=== PATIENT | female | born 1960 | race Caucasian/White ===

== ENCOUNTER 2019-05-26 14:32 | Outpatient (CLI) | payer BC, SELFPAY ==
--- NOTE | ~2019-05-26 | MM_ITS ---
EXAMINATION: MM screening valeri BI w gemma HISTORY: Screening mammogram TECHNIQUE: Craniocaudal and mediolateral oblique 3-D tomosynthesis images were obtained and synthetic 2-D images were generated. CAD analysis was submitted and interpreted. COMPARISON: Comparison to multiple prior studies sequentially, with oldest reviewed study dated 11/2012. BREAST PARENCHYMAL COMPOSITION: There are scattered areas of fibroglandular density. FINDINGS: There is no evidence of suspicious mass, calcification, or architectural distortion to sugg est malignancy in either breast. There has been no suspicious interval change. IMPRESSION: 1. No mammographic evidence of malignancy. 2. Recommend routine screening mammography in one year. BI-RADS Category 1: Negative Reviewed, dictated and finalized at location A. [facility] [employer]
== END 2019-05-26 14:33 | disposition home or self-care (01) ==
LOC: ANHIMG 14:37
PROVIDERS: PCP Family Medicine; Visit Provider Family Medicine
DX: Z12.31 Encounter for screening mammogram for malignant neoplasm of breast (principal)
CPT/HCPCS: 77063; 77067

== ENCOUNTER 2019-05-28 13:08 | Outpatient (CLI) | payer BC, SELFPAY ==
[2019-05-28 14:06] LABS: Basophils Percent Auto 0.4 % (0.2-1.2); Eosinophils Absolute Auto 0.3 K/mm3 (0-0.3); Eosinophils Percent Auto 4.4 % (0-4.4); Hematocrit 41.2 % (37.0-47.0); Hemoglobin 13.8 g/dL (12.0-15.0); Immature Granulocyte Absolute 0.02 K/mm3 (0.00-0.031); Immature Granulocyte Percent A 0.3 % (0-0.5); Lymphocytes Absolute Auto 2.12 K/mm3 (0.9-3.2); Lymphocytes Percent Auto 30.3 % (18.3-44.2); Mean Corpuscular HGB Conc 33.5 g/dl (32-36); Mean Corpuscular Hemoglobin 30.8 pg (26-34); Monocytes Absolute Auto 0.5 K/mm3 (0.1-0.6); Monocytes Percent Auto 7.7 % (2.6-8.5); Neutrophils Percent Auto 56.9 % (45.5-73.1); Platelet Count Result 249 k/mm3 (150-375); Red Blood Count 4.48 M/mm3 (4.2-5.4); Red Cell Distribution Width 12.6 % (11.5-14.5)
[2019-05-28 14:19] LABS: Alanine Aminotransferase 36 U/L (4-35); Alkaline Phosphatase 55 U/L (38-126); Aspartate Amino Transferase 31 U/L (14-36); Bilirubin,Total 0.8 mg/dL (0.2-1.3); Blood Urea Nitrogen 16 mg/dL (7-17); Calcium 9.1 mg/dL (8.4-10.2); Carbon Dioxide 29 mmol/L (22-30); Chloride 105 mmol/L (98-107); Cholesterol 176 mg/dL (0-200); Estimated Glomerular Filt Rate > 60; Glucose 91 mg/dL (65-105); HDL Direct 48 mg/dL; Sodium 138 mmol/L (137-145); Triglycerides 152 mg/dL (<150)
[2019-05-28 14:30] LABS: LDL Cholesterol Direct 113 mg/dL
[2019-06-03 06:49] LABS: Vitamin D 1,25 (OH)2 Total 33 pg/mL (18-72); Vitamin D2 1,25 (OH)2 <8 pg/mL; Vitamin D3 1,25 (OH)2 33 pg/mL
== END 2019-05-28 13:09 | disposition home or self-care (01) ==
PROVIDERS: PCP Family Medicine; Visit Provider Family Medicine
DX: Z13.220 Encounter for screening for lipoid disorders (principal); Z00.01 Encounter for general adult medical examination with abnormal findings; Z13.21 Encounter for screening for nutritional disorder
CPT/HCPCS: 36415; 80053; 80061; 82652; 85025; 85027

== ENCOUNTER 2021-01-25 11:23 | Emergency (ER) | payer SELFPAY ==
[2021-01-25 11:31] VITALS: BP 132/93; PULSE 67; RESP 16; TEMP 36.4; O2SAT 95
--- NOTE | 2021-01-25 11:53 | ED.URI ---
HPI - URI/Sore Throat General Chief Complaint: Upper Respiratory Infection Stated Complaint: Cold Time Seen by Provider: 01/25/21 11:53 Source: patient Mode of arrival: ambulatory Limitations: no limitations History of Present Illness HPI Narrative: Yeny Young is a 60 yo female with no PMH with complaints of symptoms of sinusitis-cough and sinus congestion. States she gets sinusitis every year, and is concerned about moving to her chest, no SOB Related Data Allergies Allergy/AdvReac Type Severity Reaction Status Date / Time levofloxacin Allergy Mild shoulder Verified 05/17/19 14:35 tendon pain morphine Allergy Mild Nausea Verified 05/17/19 14:35 Review of Systems Review of Systems: CONSTITUTIONAL: Denies fever, chills, sweats. EYES: Denies visual changes, redness, discharge. ENT: Has rhinorrhea, has congestion, sore throat, otalgia. Has sinus tenderness CARDIOVASCULAR: Denies chest pain, palpitations, edema. RESPIRATORY: Denies dyspnea, wheezing, deep , productive cough GASTROINTESTINAL: Denies abdominal pain, nausea, vomiting, diarrhea. GENITOURINARY: Denies dysuria, hematuria, abnormal discharge SKIN: Denies rash or itching. NEUROLOGIC: Denies numbness, or focal weakness. PSYCHIATRIC: Denies anxiety or depression. PMFSH Past Medical History Medical History Anxiety Asthma Crushing injury of unspecified finger(s), sequela Hx of smoking Surgical History Surgical History History of hysterectomy History of surgical removal of ganglion cyst S/P cubital tunnel release Family History Family History Father Diabetes mellitus Acute myocardial infarction, Onset Age: 80 Hypertension Family history of cardiovascular disease Family history of type 2 diabetes mellitus Mother Hypertension Family history of cardiac disorder Family history of arthritis Sibling Family history of malignant neoplasm Family history of lung cancer Social History Social History Social History: Smoking status: Former smoker Second hand tobacco smoke exposure: No Smoking end date: 03/24/06 Alcohol intake: current Alcohol use details: socially Substance use: never Substance use type: does not use Gender identity (if verbalized by the patient): Female Comments At time of signature, I agree with nursing past medical, surgical, social and family history. There is no relevant family history pertinent to the presenting complaint. Patient has elevated blood pressure and will follow up with primary care physician Exam Narrative: GENERAL: This is a well-nourished, well-developed patient, in mild distress. HEAD: normocephalic, atraumatic. EYES: Sclera clear/white. Vision is grossly intact. EARS: External ears normal, auditory canals mild erythema and without drainage, TMs normal without perforation. Hearing grossly intact. NOSE: External nose normal with nasal discharge, nares without redness, has rhinorrhea. THROAT: Mucous membranes moist, posterior pharynx erythema NECK: Neck supple, non-tender CARDIOVASCULAR: Regular rate and rhythm without murmurs, gallops, or rubs. RESPIRATORY: Clear to auscultation. Breath sounds equal bilaterally. No wheezes, rales, or rhonchi. GASTROINTESTINAL: Abdomen soft, non-tender, SKIN: warm, intact with no suspicious lesions or rash, good texture and turgor. NEURO: awake, alert, and oriented to person, place and time. There were no obvious focal neurologic abnormalities. Steady gait EXTREMITIES: Normal range of motion. BACK: Nontender without deformity Course Course Emergency Course: Patient here with cough and sinus tenderness rhinorrhea states that she has sinusitis type illness every fall and has had sinus surgery but continues to have the same pattern of illness Started on prednisone and
== END 2021-01-25 12:31 | disposition home or self-care (01) ==
PROVIDERS: Emergency Provider Nurse Practitioner
DX: J01.11 Acute recurrent frontal sinusitis (principal); Z87.891 Personal history of nicotine dependence; J45.909 Unspecified asthma, uncomplicated
CPT/HCPCS: 99213; G0463

== ENCOUNTER 2022-09-18 10:06 | Outpatient (CLI) | payer BC, SELFPAY ==
--- NOTE | ~2022-09-18 | MM_ITS ---
EXAMINATION: MM screening valeri BI w gemma HISTORY: Screening mammogram TECHNIQUE: Craniocaudal and mediolateral oblique 3-D tomosynthesis images were obtained and synthetic 2-D images were generated. CAD analysis was submitted and interpreted. COMPARISON: 05/2019, 02/25/2017 bilateral screening mammogram examinations BREAST PARENCHYMAL COMPOSITION: There are scattered areas of fibroglandular density. FINDINGS: There is no evidence of suspicious mass, calcification, or architectural distortion to sugg est malignancy in either breast. There has been no suspicious interval change. IMPRESSION: 1. No mammographic evidence of malignancy. 2. Recommend routine screening mammography in one year. BI-RADS Category 1: Negative Reviewed, dictated and finalized at location A.
== END 2022-09-18 10:07 | disposition home or self-care (01) ==
LOC: ANHIMG 10:08
PROVIDERS: PCP Family Medicine; Visit Provider Family Medicine
DX: Z12.31 Encounter for screening mammogram for malignant neoplasm of breast (principal)
CPT/HCPCS: 77063; 77067

== ENCOUNTER 2023-11-05 00:43 | Day surgery (SDC) | payer MEDICARE, OTHER, SELFPAY ==
[2023-10-15 14:55] VITALS: BMI 30.8
--- NOTE | 2023-11-04 17:25 | WPDANESEPP ---
Anes - Eval Pre Procedure Procedure: Operation Date: 11/05/23 08:30 Proposed Procedures p Colonoscopy - Isac Wills MD Date/Time: 11/04/23 17:25 Pre Op Diagnosis: Personal hx. colon polyps Patient Data Age: 63 Gender: F Height: 1.65 m Weight: 84 kg Allergies Allergy/AdvReac Type Severity Reaction Status Date / Time levofloxacin Allergy Mild shoulder Verified 10/15/23 14:53 tendon pain morphine Allergy Mild Nausea Verified 10/15/23 14:53 Home Medications Medication Instructions Recorded Confirmed Type albuterol sulfate 90 mcg/actuation 1 inh inhalation DAILY PRN 10/15/23 10/15/23 History aerosol inhaler Shortness Of Breath losartan 25 mg tablet 25 mg PO DAILY 10/15/23 10/15/23 History paroxetine HCl 10 mg tablet 10 mg PO DAILY 10/15/23 10/15/23 History Patient hx anesthesia problems: none Family hx anesthesia problems: none Results Review: All pre-operative results and documents have been reviewed as part of the pre-operative evaluation. [facility] Past Medical History Medical History (Updated 11/04/23 @ 17:25 by Sierra Diaz CRNA) Anxiety Asthma Crushing injury of unspecified finger(s), sequela HTN (hypertension) Hx of smoking Obesity (BMI 30-39.9) Surgical History Surgical History History of hysterectomy History of surgical removal of ganglion cyst S/P cubital tunnel release Family History Family History Father Diabetes mellitus Acute myocardial infarction, Onset Age: 80 Hypertension Family history of cardiovascular disease Family history of type 2 diabetes mellitus Mother Hypertension Family history of cardiac disorder Family history of arthritis Sibling Family history of malignant neoplasm Family history of lung cancer Social History Social History Social History: Smoking status: Never smoker Second hand tobacco smoke exposure: No Smoking end date: 03/24/06 Alcohol intake: current Alcohol use details: Rarely Substance use: current Substance use type: marijuana Other substance usage details: Socially used Living arrangements: with family Occupation/Education: retired Gender identity (if verbalized by the patient): Female Exam Day of Procedure 11/04/23 17:25
[2023-11-05 07:05] VITALS: BP 152/93; PULSE 78; RESP 18; TEMP 36.1; O2SAT 98; BMI 30.7
[2023-11-05] MEDS: LACTATED RINGERS 1,000 ML 150 ML IV CONT (07:29)
--- NOTE | 2023-11-05 08:21 | PM.HPGS ---
History of Present Illness History of Present Illness Consent: Risks, benefits, and alternatives have been discussed and questions answered. Patient agrees to proceed with procedure. Chief complaint: Personal hx. colon polyps Narrative: Yeny Young is a 63 year old female with history of polyp, last colonoscopy 2018 Review of Systems Review of Systems: All systems reviewed & are unremarkable except as noted in HPI and below PMFSH Past Medical History Medical History (Updated 11/05/23 @ 08:21 by Isac Wills MD) Anxiety Asthma Colon polyp Crushing injury of unspecified finger(s), sequela HTN (hypertension) Hx of smoking Obesity (BMI 30-39.9) Surgical History Surgical History History of hysterectomy History of surgical removal of ganglion cyst S/P cubital tunnel release Family History Family History Father Diabetes mellitus Acute myocardial infarction, Onset Age: 80 Hypertension Family history of cardiovascular disease Family history of type 2 diabetes mellitus Mother Hypertension Family history of cardiac disorder Family history of arthritis Sibling Family history of malignant neoplasm Family history of lung cancer Social History Social History Social History: Smoking status: Never smoker Second hand tobacco smoke exposure: No Smoking end date: 03/24/06 Alcohol intake: current Alcohol use details: Rarely Substance use: current Substance use type: marijuana Other substance usage details: Socially used Living arrangements: with family Occupation/Education: retired Gender identity (if verbalized by the patient): Female Meds Home Medications and Allergies Home Medications Medication Instructions Recorded Confirmed Type albuterol sulfate 90 mcg/actuation 1 inh inhalation DAILY PRN 10/15/23 11/05/23 History aerosol inhaler Shortness Of Breath losartan 25 mg tablet 25 mg PO DAILY 10/15/23 11/05/23 History paroxetine HCl 10 mg tablet 10 mg PO DAILY 10/15/23 11/05/23 History Allergies Allergy/AdvReac Type Severity Reaction Status Date / Time levofloxacin Allergy Mild shoulder Verified 11/05/23 07:09 tendon pain morphine Allergy Mild Nausea Verified 11/05/23 07:09 Vital Signs Vital Signs - 24 hr 11/05/23 07:05 Temperature 97.0 F L Pulse Rate 78 Respiratory Rate 18 Blood Pressure 152/93 H Pulse Oximetry 98 Oxygen Delivery Room Air Exam Const: General: comfortable and no acute distress HENMT: Face/Nose/Sinus: Normal nares present Eyes: General: appearance normal, both eyes and all related structures Neck: Neck: no JVD Resp: Auscultation: clear to auscultation bilaterally Cardio: Rate: regular rate Rhythm: regular rhythm GI: Inspection: non-distended GI Palp: Yes Soft to palpation Skin: General skin exam: normal color Neuro: General: gait normal Speech: normal speech Extrem: General: normal to inspection Psych: Mental Status: mental status grossly normal Assessment and Plan Assessment and plan (1) Colon polyp: Code(s): K63.5 - Polyp of colon Status: Acute Assessment and Plan: colonoscopy
[2023-11-05 08:38] VITALS: BP 129/74; PULSE 66; RESP 18; O2SAT 100
[2023-11-05 08:48] VITALS: BP 146/82; PULSE 67; RESP 18; O2SAT 100
[2023-11-05 08:58] VITALS: BP 154/82; PULSE 62; RESP 18; O2SAT 100
== END 2023-11-05 09:08 | disposition home or self-care (01) ==
PROVIDERS: PCP Family Medicine; Visit Provider Internal Medicine Gastroenterology
PROC: 0DJD8ZZ Inspection of Lower Intestinal Tract, Via Natural or Artificial Opening Endoscopic (ICD-10-PCS; CPT 45378; principal; 2023-11-05 08:30)
DX: Z12.11 Encounter for screening for malignant neoplasm of colon (principal); K64.8 Other hemorrhoids; Z86.010 Personal history of colon polyps; I10 Essential (primary) hypertension; J45.909 Unspecified asthma, uncomplicated; Z87.891 Personal history of nicotine dependence; Z79.51 Long term (current) use of inhaled steroids; F12.90 Cannabis use, unspecified, uncomplicated
CPT/HCPCS: G0105; J2704; J7120